=== PATIENT | female | born 1990 | race Caucasian/White ===

== ENCOUNTER 2018-10-05 11:53 | Day surgery (SDC) | payer OTHER ==
[2018-10-05 11:59] VITALS: BMI 26.4
--- NOTE | 2018-10-05 12:01 | C.PDOC ---
History Of Present Illness 28 y/o female pt presents to the ER c/o vaginal bleeding today. Pt is and her LMP: 6. Pt denies abdominal pain. Time Seen by Provider: 10/05/18 11:58 History Per: Patient History/Exam Limitations: no limitations Onset/Duration Of Symptoms: Days Current Symptoms Are (Timing): Still Present Past Medical History Reviewed: Historical Data, Nursing Documentation, Vital Signs Family History: States: No Known Family Hx Review Of Systems Except As Marked, All Systems Reviewed And Found Negative. Genitourinary: Positive for: Vaginal Bleeding Physical Exam - Physical Exam Appears: Non-toxic, No Acute Distress Skin: Normal Color, Warm, Dry Head: Atraumatic, Normacephalic Eye(s): bilateral: Normal Inspection, PERRL, EOMI Chest: Symmetrical Cardiovascular: Rhythm Regular, No Murmur Respiratory: Normal Breath Sounds, No Rales, No Rhonchi, No Wheezing Gastrointestinal/Abdominal: Normal Exam, Soft, No Tenderness Extremity: Bilateral: Atraumatic, Normal Color And Temperature, Normal ROM Neurological/Psych: Oriented x3, Normal Speech ED Course And Treatment - Laboratory Results Result Diagrams: 10/05/18 15:15 10/05/18 12:24 Medical Decision Making Medical Decision Making: Impression: miscarriage Plans: -- blood bank -- chem labs -- blood work case discussed with patient ob doctor and will admit to same day surgery for d and c Disposition Discussed With Dr.: Cherelle Rodriguez Counseled Patient/Family Regarding: Studies Performed, Diagnosis - Disposition Disposition: HOSPITALIZED Disposition Time: 12:01 Condition: FAIR - Clinical Impression Clinical Impression: Vaginal bleeding, Missed - Scribe Statement The provider has reviewed the documentation as recorded by the Jerald Wilkes Do Provider Attestation: All medical record entries made by the Jerald were at my direction and personall y dictated by me. I have reviewed the chart and agree that the record accurately reflects my personal performance of the history, physical exam, medical decision making, and the department course for this patient. I have also personally directed, reviewed, and agree with the discharge instructions and disposition.
[2018-10-05 12:29] LABS: BASO % 0.3 % (0.0-2.0); EOS # 0.1 K/uL (0.0-0.7); EOS % 1.2 % (0.0-4.0); HEMOGLOBIN 9.9 g/dL (11.0-16.0); LYMPH # 2.1 K/uL (1.0-4.3); LYMPH % 20.4 % (20.0-40.0); MEAN CORPUSCULAR HEMOGLOBIN 20.7 pg (27.0-31.0); MEAN CORPUSCULAR HGB CONC 32.3 g/dL (33.0-37.0); MEAN PLATELET VOLUME 12.2 fL (7.2-11.7); MONO # 0.6 K/uL (0.0-0.8); MONO % 5.7 % (0.0-10.0); NEUT # 7.4 K/uL (1.8-7.0); NEUT % 72.4 % (50.0-75.0); NRBC % 0.1 % (0.0-2.0); RBC 4.76 Mil/uL (3.80-5.20); RED CELL DISTRIBUTION WIDTH 16.8 % (11.5-14.5); WHITE BLOOD COUNT 10.2 K/uL (4.8-10.8)
[2018-10-05 12:40] LABS: INR 1.1; PROTHROMBIN TIME 12.4 SECONDS (9.7-12.2)
[2018-10-05 12:44] LABS: ALB/GLOB RATIO 1.6 (1.0-2.1); ALT/SGPT 17 U/L (9-52); AST/SGOT 31 U/L (14-36); BLOOD UREA NITROGEN 10 mg/dL (7-17); CALCIUM 9.3 mg/dl (8.6-10.4); GFR NON-AFRICAN AMERICAN > 60
--- NOTE | 2018-10-05 14:36 | CP.SDSHP ---
Same Day Surgery H & P - History Proposed Procedure: Suction Dilation and currettage Pre-Op Diagnosis: Incomplete - Previous Medical/Surgical History Comments: 28 y/o with blighted ovum confimred by 2 ultraound rperots kaylay bleeidgn last night afte being evluate din the office, with more than 2pads/ hour x 2 hour. pt preorts intense crampign cmign and going. pt dneis any lightheand,d nikkie, cp, sob. OB: P0. MANAGER IMMUNOLOGY: Denies. PMH: denie. sPSH: dneie. sFHX: non contibur. MEDS: PNV. NKDA. SH:X ngative x 3 Previous Surgical History: none - Allergies Allergies: Allergies No Known Allergies Allergy (Unverified 10/05/18 12:31) - Physical Exam Vital Signs: Vital Signs 10/05/18 10/05/18 12:25 13:51 Temperature 98.6 F 98.9 F Pulse Rate 105 H 89 Respiratory 18 20 Rate Blood Pressure 113/71 101/69 O2 Sat by Pulse 100 100 Oximetry Mental Status: Alert & Oriented x3 Neuro: WNL Heart: WNL Lungs: WNL GI: WNL - Date & Time Date: 10/05/18 Short Stay Discharge - Short Stay Discharge Admitting Diagnosis/Reason for Visit: VAGINAL BLEEDING,MISSED AB Disposition: HOME/ ROUTINE
[2018-10-05 15:30] LABS: BASO % 0.3 % (0.0-2.0); EOS % 0.4 % (0.0-4.0); HEMOGLOBIN 9.3 g/dL (11.0-16.0); LYMPH # 1.3 K/uL (1.0-4.3); LYMPH % 15.9 % (20.0-40.0); MEAN CELL VOLUME 63.7 fL (81.0-99.0); MEAN CORPUSCULAR HEMOGLOBIN 20.1 pg (27.0-31.0); MEAN CORPUSCULAR HGB CONC 31.6 g/dL (33.0-37.0); MEAN PLATELET VOLUME 12.8 fL (7.2-11.7); MONO # 0.4 K/uL (0.0-0.8); MONO % 4.6 % (0.0-10.0); NEUT # 6.7 K/uL (1.8-7.0); NEUT % 78.8 % (50.0-75.0); NRBC % 0.1 % (0.0-2.0); RBC 4.6 Mil/uL (3.80-5.20); RED CELL DISTRIBUTION WIDTH 16.6 % (11.5-14.5); WHITE BLOOD COUNT 8.5 K/uL (4.8-10.8)
[2018-10-05] MEDS ORDERED: Doxycycline 100 mg Inj ONE (15:44)
[2018-10-05] MEDS ORDERED: Propofol 10 mg/ml Inj (20 ML) ONE (17:04)
[2018-10-05 18:31] VITALS: O2SAT 100
[2018-10-05 18:55] VITALS: BP 117/73; PULSE 97; RESP 15; TEMP 97.8
--- NOTE | 2018-10-05 21:37 | OP ---
PROCEDURE DATE: 10/05/2018 PREOPERATIVE DIAGNOSIS: Incomplete at 9 weeks. POSTOPERATIVE DIAGNOSIS: Incomplete at 9 weeks. PROCEDURE PERFORMED: Suction, dilatation and curettage. SURGEON: Cherelle Rodriguez MD TYPE OF ANESTHESIA: General LMA. ESTIMATED BLOOD LOSS: 15 mL. BLOOD PRODUCTS: None. COMPLICATIONS: None. SPECIMEN: Products of conception. INDICATIONS: The patient is a 28-year-old G1, P0 with abnormal pregnancies and started bleeding heavy yesterday, was bleeding profusely with more than 2 pads per an hour for more than 2 hours and had some dizziness, was instructed to come to the ER in which she was diagnosed with an incomplete , cervix dilated at 2 cm with products at the cervical os. The patient was counseled on expectant medical and surgical management. The patient opted for surgical management. Risks, benefits, alternatives, and indications were discussed of the procedure. Consent obtained. DESCRIPTION OF PROCEDURE: The patient was taken to the operating room, where she was given general anesthesia. Once it was found to be adequate, she was placed on the operating table in dorsal supine position with legs supported using stirrups. The patient was then prepped and draped in the usual sterile fashion. A time-out confirmed correct patient and correct procedure. Bimanual exam was performed with the above-mentioned findings. The patient was given preoperative prophylactic antibiotics. A Davison retractor was placed in the anterior and posterior fornix of the vagina. The cervix was adequately visualized. A single-tooth tenaculum was placed in the anterior lip of the cervix. The cervix was sequentially dilated to allow for introduction of the 8-mm curved suction curette, which was advanced to the fundus and rotated to 360 degrees until all clotted moderate products of conception were removed. This was removed and gentle curettage was done 360 degrees. Following this, the suction curette was then advanced an additional time 360 degrees until all products were removed and there was air bubble noted within the suction curette. All instruments were removed. There was good hemostasis of the tenaculum site and also at the cervix and uterus. All instruments were removed. At the end of the procedure, all needle, sponge, and instrument counts were noted and correct x2. The patient tolerated the procedure well and was transferred to the recovery room in stable condition where she was ordered to receive RhoGAM prior to discharge. The patient was given appropriate discharge instructions. Cherelle Rodriguez MD
== END 2018-10-05 19:12 | disposition home or self-care (01) ==
LOC: C.ER 11:53 → C.SDS 11:59
PROVIDERS: ATTEND Obstetrics & Gynecology
DX: O03.4 Incomplete spontaneous abortion without complication (principal); Z3A.09 9 weeks gestation of pregnancy; R42 Dizziness and giddiness; O36.0910 Maternal care for other rhesus isoimmunization, first trimester, not applicable or unspecified
CPT/HCPCS: 36415; 59812; 80053; 84702; 85025; 85610; 85730; 86850; 86900; 88305; 99285; J2001; J2704; J2792; J3010